=== PATIENT | female | born 1985 | race African-American/Black ===

== ENCOUNTER 2016-11-06 18:16 | Emergency (ER) | payer MEDICAID ==
[~2016-11-06] VITALS: Ht 157.5 cm; Wt 112.0 kg
[2016-11-06 19:04] LABS: Basophils # (auto) 0 uL; DEFINITIVE VIEW TRANSMISSION; Eosinophils # (auto) 0.1 uL; Hemoglobin 11.9 g/dL (12.2-16.2); Lymphocytes # (auto) 2.1 uL; Lymphocytes % (auto) 32.4 % (10.0-50.0); Mean Corpuscular Hemoglobin 26.2 pg (28.0-32.0); Mean Corpuscular Hgb Conc. 32.6 g/dL (32.0-36.0); Monocytes # (auto) 0.5 uL; Neutrophils # (auto) 3.7 uL; White Blood Cell 6.4 10^3/uL (4.4-10.8)
[2016-11-06 19:14] LABS: Basophils % (auto) 0.3 % (0.0-2.0); Eosinophils % (auto) 1.3 % (0.0-7.0); Hematocrit 36.5 % (36.0-46.0); Mean Corpuscular Volume 80.6 fL (80.0-100.0); Mean Platelet Volume 8.6 fL (7.4-10.4); Monocytes % (auto) 8.1 % (0.0-12.0); Neutrophils % (auto) 57.9 % (37.0-80.0); Platelet Count (auto) 268 10^3/uL (140-450); Red Cell Distribution Width 15.6 % (11.6-16.0)
[2016-11-06 19:18] LABS: Urine Bilirubin Negative (Negative); Urine Blood Negative /uL (Negative); Urine Color Yellow (Yellow); Urine Glucose Normal (Normal); Urine Ketone Negative (Negative); Urine Mucus FEW (None Seen); Urine Nitrite Negative (Negative); Urine RBC 1 /hpf (0 - 4); Urine Squamous Epithelial Cell MANY /hpf (<5); Urine Urobilinogen Normal (Negative)
[2016-11-06 19:19] LABS: Albumin 3.9 g/dL (3.4-5.0); BUN/Creatinine Ratio 10.3; Calcium 8.9 mg/dL (8.5-10.1)
[2016-11-06 19:22] LABS: Bilirubin, Total 0.3 mg/dL (0.2-1.0); Total Protein 8.2 g/dL (6.4-8.2)
[2016-11-06 21:08] VITALS: BP 115/68
== END 2016-11-06 21:08 | disposition home or self-care (01) ==
LOC: ER 18:21
DX: O20.0 Threatened abortion (principal); O23.41 Unspecified infection of urinary tract in pregnancy, first trimester; Z3A.01 Less than 8 weeks gestation of pregnancy
CPT/HCPCS: 36415; 76801; 76817; 80053; 81001; 84702; 85025

== ENCOUNTER 2016-12-26 11:40 | Emergency (ER) | payer MEDICAID ==
[~2016-12-26] VITALS: Ht 157.5 cm; Wt 113.4 kg
[2016-12-26 11:55] LABS: Urine RBC None Seen /hpf (0 - 4)
[2016-12-26 12:07] VITALS: BP 134/85
[2016-12-26 12:16] LABS: Urine Bilirubin Negative (Negative); Urine Blood Negative /uL (Negative); Urine Color Yellow (Yellow); Urine Glucose Normal (Normal); Urine Ketone Negative (Negative); Urine Nitrite Negative (Negative); Urine Squamous Epithelial Cell FEW /hpf (<5); Urine Urobilinogen Normal (Negative)
== END 2016-12-26 13:01 | disposition home or self-care (01) ==
LOC: ER 11:46
DX: S39.012A Strain of muscle, fascia and tendon of lower back, initial encounter (principal); X50.1XXA Overexertion from prolonged static or awkward postures, initial encounter; Y93.B9 Activity, other involving muscle strengthening exercises; Y99.8 Other external cause status; Y92.89 Other specified places as the place of occurrence of the external cause
CPT/HCPCS: 81001

== ENCOUNTER 2017-01-14 16:02 | Emergency (ER) | payer MEDICAID ==
[~2017-01-14] VITALS: Ht 157.5 cm; Wt 111.6 kg
[2017-01-14 16:56] LABS: Basophils # (auto) 0 uL; Basophils % (auto) 0.6 % (0.0-2.0); DEFINITIVE VIEW TRANSMISSION; Eosinophils # (auto) 0.1 uL; Eosinophils % (auto) 1.8 % (0.0-7.0); Hemoglobin 12.6 g/dL (12.2-16.2); Lymphocytes % (auto) 46.9 % (10.0-50.0); Mean Corpuscular Hemoglobin 26.3 pg (28.0-32.0); Mean Corpuscular Hgb Conc. 33.1 g/dL (32.0-36.0); Mean Corpuscular Volume 79.3 fL (80.0-100.0); Mean Platelet Volume 8.9 fL (7.4-10.4); Monocytes # (auto) 0.4 uL; Monocytes % (auto) 8.2 % (0.0-12.0); Neutrophils # (auto) 1.8 uL; Neutrophils % (auto) 42.5 % (37.0-80.0); Platelet Count (auto) 263 10^3/uL (140-450); Red Cell Distribution Width 15.1 % (11.6-16.0); White Blood Cell 4.3 10^3/uL (4.4-10.8)
[2017-01-14 17:14] LABS: Albumin 4.3 g/dL (3.4-5.0); Anion Gap 8 (5-15); Aspartate Aminotransferase 13 U/L (15-37); BUN/Creatinine Ratio 9.5; Blood Urea Nitrogen 7 mg/dL (7-18); Calcium 9.1 mg/dL (8.5-10.1); Carbon Dioxide 26 mmol/L (21-32); Chloride 106 mmol/L (98-107); GFR African American 119 mL/min; GFR Non-African American 98 mL/min; Glucose 86 mg/dL (74-106); Potassium 4.2 mmol/L (3.5-5.1); Sodium 140 mmol/L (136-145)
[2017-01-14 17:19] LABS: Alkaline Phosphatase 65 U/L (45-117); Bilirubin, Total 0.3 mg/dL (0.2-1.0); Total Protein 8.3 g/dL (6.4-8.2)
[2017-01-14] MEDS ORDERED: IOHEXOL 300 MG/ML 100ML BOTTLE IJ ONE (20:13)
[2017-01-14] MEDS ORDERED: HYDROcodone-ACET 5/325MG TAB PO ONE (20:15)
[2017-01-14 21:02] LABS: Urine Bilirubin Negative (Negative); Urine Blood TRACE /uL (Negative); Urine Color Yellow (Yellow); Urine Glucose Normal (Normal); Urine Ketone Negative (Negative); Urine Mucus FEW (None Seen); Urine Nitrite Negative (Negative); Urine RBC 1 /hpf (0 - 4); Urine Squamous Epithelial Cell FEW /hpf (<5); Urine Urobilinogen Normal (Negative); Urine pH 5.5 (5.0-8.0)
[2017-01-14 21:10] VITALS: BP 127/77
== END 2017-01-14 23:04 | disposition home or self-care (01) ==
LOC: ER 16:14
DX: R07.89 Other chest pain (principal); J45.909 Unspecified asthma, uncomplicated; M54.9 Dorsalgia, unspecified; Z87.440 Personal history of urinary (tract) infections
CPT/HCPCS: 36415; 71010; 74177; 80053; 81001; 84484; 84702; 85025; 93005; 99285; Q9967

== ENCOUNTER 2017-04-22 02:26 | Emergency (ER) | payer MEDICAID ==
[~2017-04-22] VITALS: Ht 157.5 cm; Wt 108.4 kg
[2017-04-22 02:39] VITALS: BP 115/77
== END 2017-04-22 04:20 | disposition home or self-care (01) ==
LOC: ER 02:26
DX: J02.9 Acute pharyngitis, unspecified (principal); J45.909 Unspecified asthma, uncomplicated

== ENCOUNTER → 2018-01-28 | Outpatient (CLI) | payer MEDICAID | END | disposition home or self-care (01) | LOC: Rad HDHVI 08:39 | PROVIDERS: ATTEND Internal Medicine | DX: I34.0 Nonrheumatic mitral (valve) insufficiency (principal); I45.81 Long QT syndrome; Z87.898 Personal history of other specified conditions | CPT/HCPCS: 93306 ==

== ENCOUNTER → 2018-03-05 | Outpatient (CLI) | payer MEDICAID ==
[~2018-03-05] VITALS: Ht 157.5 cm; Wt 95.3 kg
== END | disposition home or self-care (01) ==
LOC: Rad HDHVI 08:45
PROVIDERS: ATTEND Internal Medicine
DX: I45.81 Long QT syndrome (principal); R06.02 Shortness of breath; Z87.898 Personal history of other specified conditions
CPT/HCPCS: 78452; 93017; 96374; A9500